=== PATIENT | male | born 1980 | race Caucasian/White ===

== ENCOUNTER 2024-08-11 20:49 | Emergency (ER) | payer OTHER ==
[2024-08-11] MEDS: predniSONE 20 MG Tab PO ONE (21:54)
[2024-08-11] MEDS: Acetaminophen/HYDROcodone 325-5 MG Tab PO ONE (21:54)
[2024-08-11] MEDS: Ketorolac 60 MG/2 ML SDV IM ONE (21:55)
[2024-08-11] MEDS: Orphenadrine 60 MG/2 ML Inj IM ONE (21:56)
== END 2024-08-11 22:15 | disposition home or self-care (01) ==
LOC: JD.ED 20:49
DX: M54.42 Lumbago with sciatica, left side (principal); M51.26 Other intervertebral disc displacement, lumbar region; G89.29 Other chronic pain
CPT/HCPCS: 96372; 99283; A9270; J1885; J2360; J7512

== ENCOUNTER 2024-10-17 21:17 | Emergency (ER) | payer SELFPAY ==
[2024-10-17] MEDS ORDERED: predniSONE 1 MG Tab PO ONE (21:48)
[2024-10-17] MEDS: Ondansetron 4 MG Tab.DIS PO ONE (22:42)
[2024-10-17] MEDS: HYDROmorphone 1 MG/ML Syringe IM ONE (22:44)
[2024-10-17] MEDS: methylPREDNISolone Sodium Succinate 125 MG/2 ML SDV IM ONE (22:47)
[2024-10-17] MEDS: methylPREDNISolone Sod Succ 125 MG in Sodium Chloride 0.9% 250 ML IV ONE (22:48)
== END 2024-10-17 23:30 | disposition home or self-care (01) ==
LOC: JD.ED 21:17
DX: M51.16 Intervertebral disc disorders with radiculopathy, lumbar region (principal); Z86.16 Personal history of COVID-19; Z79.899 Other long term (current) drug therapy
CPT/HCPCS: 96372; 99283; A9270; J1171; J2919